=== PATIENT | male | born 1980 | race African-American/Black ===

== ENCOUNTER 2017-10-02 01:59 | Emergency (ER) | payer MEDICARE, OTHER ==
[~2017-10-02] VITALS: Ht 172.7 cm; Wt 77.1 kg
[2017-10-02] MEDS ORDERED: SODIUM BICARBONATE 8.4% INJ 50ML SYRINGE IV ONE (02:00)
[2017-10-02 02:06] VITALS: BP 0/0
== END 2017-10-02 03:56 ==
LOC: ER 01:59 → EDBD 01:59 → EDAGE 01:59 → ER 03:56
DX: R41.82 Altered mental status, unspecified (principal); R07.9 Chest pain, unspecified; R06.02 Shortness of breath; Z99.2 Dependence on renal dialysis
CPT/HCPCS: 31500; 92950; 99291